=== PATIENT | female | born 1950 | race Caucasian/White ===

== ENCOUNTER 2017-03-01 16:46 | Emergency (ER) | payer OTHER, MEDICARE ==
--- NOTE | 2017-03-01 17:04 | PDOC ---
History of Present Illness - General History Source: Patient Exam Limitations: No Limitations - History of Present Illness Initial Comments: 03/01/17 17:57 The patient is a 67 year old female with a significant past medical history of thyroid adenoma and DVT who presents to the ED s/p fall earlier today. The patient reports she was walking her dog when she had a sudden onset of generalized weakness and lightheadedness and she fell onto the ground of her driveway. Patient reports injury to the left side of her face but denies loss of consciousness. Patient states she required the help of EMS to help her get up from the ground secondary to her weakness. She also notes she was consuming alcohol throughout the day. Denies focal numbness, weakness or tingling. Denies vision changes. Denies chest pain or shortness of breath. Denies fever or chills. Denies any other symptoms. Social hx: The patient has an increased level of stress this past month due to moving out of her old apartment. She states she has been eating only one meal a day for the past month secondary to stress. <Merrick Paulson - Last Filed: 03/01/17 18:33> <Tabatha Herrera - Last Filed: 03/01/17 19:02> - General Chief Complaint: Syncope/Near Syncope Stated Complaint: SYNCOPE AND FALL Time Seen by Provider: 03/01/17 16:54 Past History <Merrick Paulson - Last Filed: 03/01/17 18:33> <Tabatha Herrera - Last Filed: 03/01/17 19:02> - Past Medical History Allergies/Adverse Reactions: Allergies Allergy/AdvReac Type Severity Reaction Status Date / Time No Known Allergies Allergy Verified 03/01/17 16:50 Home Medications: Ambulatory Orders Acetaminophen [Tylenol Extra Strength] 500 mg PO HS PRN 03/01/17 Levothyroxine Sodium [Synthroid] 88 mcg PO DAILY 03/01/17 Review of Systems - Review of Systems Able to Perform ROS?: Yes Comments:: 03/01/17 17:57 GENERAL/CONSTITUTIONAL: + fall. No fever or chills. No weakness. HEAD, EYES, EARS, NOSE AND THROAT: No change in vision. No ear pain or discharge. No sore throat. CARDIOVASCULAR: No chest pain or shortness of breath. RESPIRATORY: No cough, wheezing, or hemoptysis. GASTROINTESTINAL: No nausea, vomiting, diarrhea or constipation. GENITOURINARY: No dysuria, frequency, or change in urination. MUSCULOSKELETAL: No joint or muscle swelling or pain. No neck or back pain. SKIN: + facial injury. No rash NEUROLOGIC: + generalized weakness, lightheadedness No headache, vertigo, loss of consciousness ENDOCRINE: No increased thirst. No abnormal weight change. HEMATOLOGIC/LYMPHATIC: No anemia, easy bleeding, or history of blood clots. ALLERGIC/IMMUNOLOGIC: No hives or skin allergy. All Other Systems: Reviewed and Negative <Merrick Paulson - Last Filed: 03/01/17 18:33> *Physical Exam - Vital Signs Last Vital Signs Temp Pulse Resp BP Pulse Ox 98.2 F 88 15 183/106 94 L 03/01/17 16:46 03/01/17 16:46 03/01/17 16:46 03/01/17 16:46 03/01/17 16:46 - Physical Exam Comments: 03/01/17 17:58 GENERAL: Awake, alert, and fully oriented, in no acute distress HEAD: No signs of trauma EYES: PERRLA, EOMI, sclera anicteric, conjunctiva clear ENT: Auricles normal inspection, hearing grossly normal, nares patent, oropharynx clear without exudates. Moist mucosa NECK: Normal ROM, supple, no lymphadenopathy, JVD, or masses LUNGS: Breath sounds equal, clear to auscultation bilaterally. No wheezes, and no crackles HEART: + occasional extrasystole, no murmurs, rubs or gallops ABDOMEN: Soft, nontender, normoactive bowel sounds. No guarding, no rebound. No masses EXTREMITIES: Normal range of motion, no edema. No clubbing or cyanosis. No cords, erythema, or tenderness NEUROLOGICAL: Normal speech SKIN: + Abrasions to the left cheek, no bony tenderness. Warm, Dry, normal turgor, no rashes. <Merrick Paulson - Last Filed: 03/01/17 18:33> ED Treatment Course - LABORATORY CBC & Chemistry Diagram: 03/01/17 17:20 03/01/17 17:20 - RADIOLOGY Radiograph Interpretation: 03/01/17 17:[address] Impression: No acute intracranial abnormality. Age related involutional changes. Micro-angiopathic changed: Not significant. Reported by: Imaging correctional probation officer. <Merrick Paulson - Last Filed: 03/01/17 18:33> - LABORATORY CBC & Chemistry Diagram: 03/01/17 17:20 03/01/17 17:20 - RADIOLOGY Radiology Studies Ordered: Category Date Time Status HEAD CT WITHOUT CONTRAST [CT] Stat CT Scan 03/01/17 16:50 Taken <Tabatha Herrera - Last Filed: 03/01/17 19:02> Medical Decision Making - Medical Decision Making 03/01/17 17:54 Symptoms likely a combination of poor caloric intake (she has been eating one meal a day, citing both recent stress as well as a desire to lose weight) and drinking wine at lunch. If CE wnl, will DC home. She has friend at bedside with her. 03/01/17 18:35 Discussion with patient on her own, as well as with separately with the friends who accompanied her. She now states she drinks half a bottle of wine at dinner every night for about a year. I discussed with her that this behavior is dangerous, she is at risk for addiction, possibly developing withdrawal in the future (which can be life-threatening). Also dangerous to sharply decrease PO intake at the same time. It is concerning that she is using this to cope with her stress. Will not discharge her until she is clinically sober, as she lives alone, and is at risk for further falls. However, friends approached to tell me that when they last saw her apartment, they saw whiskey bottles, one of which was almost empty. Friends agreed to accompany her home and ensure safety. 03/01/17 19:01 Stable gait. No signs of withdrawal. Stable for DC home. <Tabatha Herrera - Last Filed: 03/01/17 19:02> *DC/Admit/Observation/Transfer - Attestations Scribe Attestion: 03/01/17 17:58 Documentation prepared by Merrick Paulson, acting as vp medical for Tabatha Herrera MD <Merrick Paulson - Last Filed: 03/01/17 18:33> - Discharge Dispostion Admit: No <Tabatha Herrera - Last Filed: 03/01/17 19:02> Diagnosis at time of Disposition: Syncope Qualifiers: Syncope type: unspecified Qualified Code(s): R55 - Syncope and collapse Head injury Qualifiers: Encounter type: initial encounter Qualified Code(s): S09.90XA - Unspecified injury of head, initial encounter - Discharge Dispostion Disposition: HOME Condition at time of disposition: Stable - Referrals Referrals: Francisco Shahid MD [Primary Care Provider] - - Patient Instructions Printed Discharge Instructions: DI for Syncope in Adults (Fainting), Alcohol and Stress: There are Safer Ways to [place], DI for Closed Head Injury
[2017-03-01 17:07] VITALS: PULSE 88; TEMP 98.2; BMI 31.7
[2017-03-01 17:48] LABS: BASOPHIL 2.9 % (0-2.0); EOSINOPHIL 1.3 % (0-4.5); MCH 33.3 pg (25.7-33.7); MEAN CELL VOLUME 97.8 fl (80-96); NEUTROPHILS 69.2 % (42.8-82.8); PLATELET COUNT 223 K/MM3 (134-434); RDW 13.3 % (11.6-15.6); WHITE BLOOD COUNT 8.7 K/mm3 (4.0-10.8)
[2017-03-01 17:59] VITALS: BP 156/87
[2017-03-01 18:00] LABS: ALBUMIN 4.4 g/dl (3.5-5.0); ALK PHOS 67 U/L (32-92); ANION GAP 1 (8-16); BILIRUBIN,TOTAL 0.9 mg/dl (0.2-1.0); CO2 26 mmol/L (22-28); CPK 75 IU/L (26-192); CREATININE 0.6 mg/dl (0.6-1.3); GLUCOSE,RANDOM 119 mg/dl (74-106); SGOT/AST 24 U/L (10-42); SGPT/ALT 21 U/L (10-40); TOT PROT 7.3 g/dl (6.4-8.3)
[2017-03-01 18:10] LABS: TROPONIN I (DFP) < 0.03 ng/ml (0.03-0.50)
[2017-03-01 18:16] LABS: CALCIUM 9.3 mg/dl (8.4-10.2)
[2017-03-01 19:45] LABS: THYROID STIMULATING HORMONE 0.84 uIU/ml (0.358-3.74)
--- NOTE | 2017-03-02 17:47 | EKG ---
Test Reason : Blood Pressure : / mmHG Vent. Rate : 087 BPM Atrial Rate : 087 BPM P-R Int : 172 ms QRS Dur : 090 ms QT Int : 374 ms P-R-T Axes : 037 -17 066 degrees QTc Int : 450 ms POOR DATA QUALITY, INTERPRETATION MAY BE ADVERSELY AFFECTED SINUS RHYTHM WITH PREMATURE ATRIAL COMPLEXES OTHERWISE NORMAL ECG NO PREVIOUS ECGS AVAILABLE Confirmed by IRMA SMITH MD ([id number] on 03/02/2017 5:46:28 PM Referred By: GABY Confirmed By:IRMA SMITH MD
== END 2017-03-01 19:05 | disposition home or self-care (01) ==
LOC: FER 16:46 → SUPCPDRO 16:46 → FER 19:05
DX: R55 Syncope and collapse (principal); S09.90XA Unspecified injury of head, initial encounter; Z86.718 Personal history of other venous thrombosis and embolism; D34 Benign neoplasm of thyroid gland; W01.0XXA Fall on same level from slipping, tripping and stumbling without subsequent striking against object, initial encounter; Z91.81 History of falling; Y93.K1 Activity, walking an animal; Y92.008 Other place in unspecified non-institutional (private) residence as the place of occurrence of the external cause
CPT/HCPCS: 36415; 70450-TC; 80053; 80307; 82550; 84443; 84484; 85025; 93005; 99283-25